=== PATIENT | female | born 1975 | race African-American/Black ===

== ENCOUNTER 2017-01-07 05:51 | Emergency (ER) | payer MEDICARE ==
--- NOTE | ~2017-01-07 | EKG ---
PATIENT: KEVIN GUTHRIE UNIT #: [id number] Ventricular Rate: 65 BPM Atrial Rate: 65 BPM P-R Interval: 164 ms QRS Duration: 96 ms Q-T Interval: 404 ms QTC Calculation(Bezet): 420 ms P [place]: 76 degrees Calculated R [place]: 13 degrees Calculated T [place]: 25 degrees Diagnosis Line: Normal sinus rhythm Diagnosis Line: Left atrial enlargement Diagnosis Line: Low voltage QRS Diagnosis Line: Nonspecific ST abnormality Inferior leads Diagnosis Line: Otherwise normal ECG Diagnosis Line: No previous ECGs available Diagnosis Line: Confirmed by CARLY VERGARA MD ([id number]) on 01/07/2017 Diagnosis Line: 11:03:17 PM INTERPRETING MD: JAI LONG
[2017-01-07 03:16] LABS: URINE SOURCE CLEAN CATCH
[2017-01-07 03:24] LABS: URINE APPEARANCE CLOUDY; URINE BILIRUBIN NEG (NEG); URINE BLOOD 3+ (NEG); URINE COLOR YELLOW; URINE GLUCOSE NEG (NEG); URINE KETONE NEG (NEG); URINE LEUKOCYTE ESTERASE TRACE (NEG); URINE NITRATE NEG (NEG); URINE PROTEIN 1+ (NEG); URINE SPECIFIC GRAVITY 1.027 (1.003-1.035)
[2017-01-07 03:26] LABS: BASOPHIL# 0.1 X10e3 (0-0.3); BASOPHIL% 1.1 % (0-2.5); EOSINOPHIL# 0.5 X10e3 (0-0.7); HEMATOCRIT 36.8 % (35.0-45.0); HEMOGLOBIN 12.6 gm/dL (12.0-16.0); LYMPHOCYTE# 3.3 X10e3 (1.0-3.5); LYMPHOCYTE% 38.3 % (17.0-45.0); MEAN CELL VOLUME 92.2 FL (83-96); MEAN CORPUSCULAR HEMOGLOBIN 31.6 PG (28-34); MEAN CORPUSCULAR HGB CONC 34.3 g/dL (30-36); MEAN PLATELET VOLUME 8.8 FL (6.5-11.5); MONOCYTE# 0.4 X10e3 (0-1.0); MONOCYTE% 4.2 % (3.0-12.0); NEUTROPHIL# 4.3 X10e3 (1.5-7.1); NEUTROPHIL% 50.4 % (40-75); PLATELET COUNT 230 X10e3 (140-420); WHITE BLOOD COUNT 8.5 X10e3 (4.0-10.5)
[2017-01-07 03:26] LABS: CULTURE INDICATED? YES; URINE BACTERIA AUWI 1+ (NEGATIVE); URINE SQUAMOUS EPITHELIAL CELL MOD /[HPF]
[2017-01-07 03:29] LABS: DIFF IND NO
[2017-01-07 03:36] LABS: POC - CKMB 1.1 ng/mL (0.0-7.9); POC - TROPONIN <0.05 ng/mL (<=0.05)
[2017-01-07 03:56] LABS: ALBUMIN SERUM 3.8 g/dL (3.5-5.0); BUN/CREATININE RATIO 12.5; CALCIUM SERUM 8.7 mg/dL (8.4-10.2); CREATININE SERUM 0.8 mg/dL (0.6-1.4); GLOM FILT RATE Estimated 104.7 mL/min (>60); POTASSIUM 3.2 mmol/L (3.5-5.1); PROTEIN TOTAL SERUM 7.5 g/dL (6.0-8.3)
[2017-01-07 03:58] LABS: AMPHETAMINE NEG (NEG); BARBITURATES NEG (NEG); BENZODIAZEPINES NEG (NEG); COCAINE NEG (NEG); MARIJUANA POS (NEG); OPIATES NEG (NEG); TRICYCLIC ANTIDEPRESSANTS NEG (NEG); U METHADONE NEG (NEG)
[2017-01-07 04:04] LABS: BILIRUBIN, DIRECT 0.1 mg/dL (0.0-0.2); BILIRUBIN,TOTAL 0.1 mg/dL (0.2-2.0)
[~2017-01-07 05:51] MED LIST: ASPIRIN PO; BACTRIM DS TABL1 TA1 PO; CIPRO PO; FLEXERIL10 M1 PO; HALDOL; HALDOL PO; IBUPROFEN800 MG PO; KEFLEX PO; LITHIUM; NAPROXEN PO; PRILOSEC PO; PYRIDIUM PO; ZITHROMAX500 MG PO
[2017-01-08 20:42] LABS: CHLAMYDIA TRACH Not Detected (Not Detected); N GONOR Not Detected (Not Detected)
== END 2017-01-07 07:42 | disposition home or self-care (01) ==
LOC: CED 05:51
PROVIDERS: Nurse Practitioner Family; Student in an Organized Health Care Education/Training Program
DX: S39.012A Strain of muscle, fascia and tendon of lower back, initial encounter (principal); M54.42 Lumbago with sciatica, left side; N94.6 Dysmenorrhea, unspecified; A59.9 Trichomoniasis, unspecified; F20.9 Schizophrenia, unspecified
CPT/HCPCS: 36415; 80048; 80076; 80307; 81003; 82150; 82553; 83690; 83880; 84484; 84703; 85025; 87086; 87491; 87591; 87808; 87905; 93005; 96372; 99284; J0696

== ENCOUNTER → 2017-01-25 | Outpatient (CLI) | payer MEDICARE ==
--- NOTE | ~2017-01-25 | MY11 ---
[facility] A Service of [facility] RADIOLOGY TEXT RESULTS PATIENT: KEVIN GUTHRIE LOCATION: [facility] : [birth year] UNIT #: [id number] AGE: [address]: MAGO DANIELS APRN SEX: F ORDER DR: [id number] [facility]. [place], [place] [address] [id number] O MR#: [id number] Acc #: [id number] NAME: KEVIN GUTHRIE : 1975 SEX: F STUDY DATE/TIME: 01/25/2017 7:57 UNIT: [facility] ROOM: STUDY DESCRIPTION: MY Mammogram Screening [place] Attending Physician: Mago Daniels Aprn Referring Physician: Mago Daniels Aprn Ordering Physician: Mago Daniels Aprn Primary Care Physician: Mago Daniels Aprn MEDICAL IMAGING REPORT This report is preliminary unless electronic signature is present EXAM Bilateral digital screen mammogram with CAD 01/25/2017 INDICATIONS 41-year-old female for routine screening. No reported problems and no personal history of breast cancer. Family history positive in the patient's mother at age 63; no surgeries. TECHNIQUE CC and MLO views of the breasts were obtained and reviewed with an FDA-approved CAD device. COMPARISON 11/13/2013 FINDINGS Breast parenchyma is composed of heterogeneously dense breast tissue. The appearance is symmetric. There is no new dominant nodule, mass, or suspicious cluster of microcalcifications. The appearance of the posterior upper outer hemisphere right breast is stable for technical factors. IMPRESSION Negative screening mammogram; 1-year followup recommended. BIRADS: 1 Negative Dictated by... Darion Patel M.D. THIS IS AN ELECTRONICALLY VERIFIED REPORT [facility] A Service of [facility] RADIOLOGY TEXT RESULTS PATIENT: KEVIN GUTHRIE LOCATION: [facility] : 71 UNIT #: [id number] AGE: [address]: MAGO DANIELS APRN SEX: F ORDER DR: Darion Patel M.D. at 01/25/2017 4:50 PM ASIF/bruno TD: 01/25/2017 12:32 JOB #: [id number] MEDICAL IMAGING REPORT Page 1 of 1 COPY
== END | disposition home or self-care (01) ==
LOC: CWCC 07:33
DX: Z12.31 Encounter for screening mammogram for malignant neoplasm of breast (principal); Z80.3 Family history of malignant neoplasm of breast
CPT/HCPCS: G0202